=== PATIENT | female | born 1940 | race Two or more races ===

== ENCOUNTER 2016-11-08 12:52 | Day surgery (SDC) | payer BC ==
[~2016-11-08] VITALS: Ht 167.6 cm; Wt 79.8 kg
[2016-11-08 14:28] VITALS: Ht 167.6 cm; Wt 79.8 kg
[2016-11-08] MEDS ORDERED: HCTZ (14:28)
[2016-11-08] MEDS ORDERED: LOSARTAN (14:28)
[2016-11-08] MEDS ORDERED: ASPIRIN (14:28)
[2016-11-08] MEDS ORDERED: OMEPRAZOLE (14:28)
[2016-11-08 14:56] VITALS: BP 176/84; PULSE 79; RESP 18
[2016-11-08] MEDS ORDERED: LIDOCAINE 4% SOLUTION 50 ML BTL ONE (15:01)
[2016-11-08 15:39] VITALS: BP 131/78; PULSE 59; RESP 18
[2016-11-08] MEDS ORDERED: MIDAZOLAM 1 MG/ML 2 ML INJ ONE (16:05)
[2016-11-08] MEDS ORDERED: FENTAnyl 50 MCG/ML VIAL ONE (16:05)
--- NOTE | 2016-11-09 02:04 | GILP ---
DATE OF PROCEDURE: PREOPERATIVE DIAGNOSES: 1. Nausea. 2. Abdominal pain in the epigastric area. 3. Past history of Helicobacter pylori. PROCEDURE DONE: Esophagogastroduodenoscopy and random biopsy of the stomach. POSTOPERATIVE DIAGNOSES: 1. Normal esophagus. 2. Normal stomach. 3. Normal duodenum. DESCRIPTION OF PROCEDURE: The patient was put in left lateral decubitus after obtaining informed co nsent. Posterior pharynx anesthetized with 4% Xylocaine gargle. Then I gave 3 mg IV Versed and 50 mcg of fentanyl. Carefully advanced Olympus video upper endoscope into the esophagus, stomach, and duodenum and examination essentially normal esophagus in its entire length. GE junction easily peter ersed. No esophagitis. No hiatus hernia. In the stomach, there was an early diverticulum in the f undus area. Stomach body, antrum, and fundus otherwise unremarkable. Random biopsies done to rule out H. pylori. Easily I entered the duodenum through the pyloric channel. The pylorus, duodenal bu lb, first and second part of the duodenum normal. Scope was withdrawn. The patient had no complica tion. Plan will be to await for biopsy report. Follow up as outpatient. If H. pylori positive, we will treat as so. Dictated By: KATI GARCIA/LUIZ Conf#: [id number] DID#: [id number] CC: Jamie Lamas; KATI BIANCHI M.D.;*End*
== END 2016-11-08 16:24 | disposition home or self-care (01) ==
LOC: GIL 12:52
PROVIDERS: ATTEND Internal Medicine
DX: K29.50 Unspecified chronic gastritis without bleeding (principal)
CPT/HCPCS: 43239; 88305; 88312; J2250; J3010; Z7610

== ENCOUNTER 2017-03-21 18:51 | Emergency (ER) | payer SELFPAY ==
[~2017-03-21] VITALS: Ht 160 cm; Wt 81.0 kg
[~2017-03-21 18:51] MED LIST: ASPIRIN; HCTZ; LOSARTAN; OMEPRAZOLE
[2017-03-21 18:54] VITALS: Ht 160 cm; Wt 81.0 kg
== END 2017-03-22 01:19 | disposition left against medical advice (07) ==
LOC: E/R 18:51
DX: Z53.21 Procedure and treatment not carried out due to patient leaving prior to being seen by health care provider (principal)